=== PATIENT | male | born 1970 | race Caucasian/White ===

== ENCOUNTER 2021-01-03 12:46 | Inpatient (IN) ==
[2021-01-03] MEDS: 0.9 % Sodium Chloride 1,000 ML IVC SCH ×2 (15:27→22:32)
[2021-01-03] MEDS ORDERED: Naloxone 0.4 MG/ML INJ IVP PRN (15:50)
[2021-01-03] MEDS ORDERED: Albuterol 2.5 MG/3 ML NEBULIZER IH PRN (15:50)
[2021-01-03] MEDS ORDERED: Nicotine 21 MG PATCH.TD24 TD SCH (16:00)
[2021-01-03] MEDS ORDERED: Azithromycin 500 MG in 0.9 % Sodium Chloride 250 ML IVPB SCH (16:00)
[2021-01-03] MEDS ORDERED: cefTRIAXone 2,000 MG in Water for inj. (sterile) 20 ML IVP SCH (16:00)
[2021-01-03] MEDS: *HR* HYDROcodone/Acet 5/325 mg TABLET PO PRN ×2 (16:19→22:32)
[2021-01-03] MEDS: Ipratropium/Albuterol Neb 3 ML IH SCH ×3 (16:37→23:10)
[2021-01-03 16:45] LABS: White Blood Count 16.6 K/mcL (4.3-11.1)
[2021-01-03 16:46] LABS: Basophils % 0.2 %; Hematocrit 31.5 % (37.5-50.1); Hemoglobin 9.8 g/dL (12.9-16.9); Immature Granulocytes % 0.5 % (0-4); Lymphocytes # 0.7 K/mcL (0.6-4.6); Lymphocytes % 4.3 %; Mean Corpuscular HGB Conc 31.1 g/dL (31.6-35.5); Mean Corpuscular Hemoglobin 28.7 pg (28.0-33.3); Mean Corpuscular Volume 92.4 fL (83.0-100.0); Mean Platelet Volume 9.9 fL (9.4-12.4); Monocytes # 0.6 K/mcL (0.0-1.3); Monocytes % 3.7 %; Neutrophils # 15.1 K/mcL (1.6-8.9); Platelet Count 368 K/mcL (140-400); Red Blood Count 3.41 M/mcL (4.19-5.50); Red Cell Distribution Width 14.5 % (11.5-14.5); Segmented Neutrophils % 91.3 %
[2021-01-03 16:55] LABS: INR 1.2; Prothrombin Time 13.9 Seconds (9.4-12.1)
[2021-01-03 17:04] LABS: Albumin 3.3 g/dL (3.5-5.7); Albumin/Globulin Ratio 1.2 (1.1-2.2); Bilirubin,Indirect 0.2 mg/dL (0.0-1.0); Bilirubin,Total 0.2 mg/dL (0.3-1.0); Calcium 7.4 mg/dL (8.6-10.3); Globulin 2.8 g/dL (2.4-3.5); Phosphorous 2.6 mg/dL (2.7-4.5); Potassium 3.7 mEq/L (3.5-5.1); Total Protein 6.1 g/dL (6.4-8.9)
[2021-01-03] MEDS: *HR* Heparin 5,000 UNIT/ML VIAL SQ SCH (17:07)
[2021-01-03 17:33] LABS: Adenovirus Not Detected (Not Detect); Bordetella Pertussis Not Detected (Not Detect); Chlamydophila pneumoniae Not Detected (Not Detect); Coronavirus 229E Not Detected (Not Detect); Coronavirus HKU1 Not Detected (Not Detect); Coronavirus NL63 Not Detected (Not Detect); Coronavirus OC43 Not Detected (Not Detect); Human Metapneumovirus Not Detected (Not Detect); Human Rhinovirus/Enterovirus DETECTED (Not Detect); Influenza A Subtype 2009 H1 Not Detected (Not Detect); Influenza B Not Detected (Not Detect); Mycoplasma pneumoniae Not Detected (Not Detect); Parainfluenza Virus 1 Not Detected (Not Detect); Parainfluenza Virus 2 Not Detected (Not Detect); Parainfluenza Virus 3 Not Detected (Not Detect); Parainfluenza Virus 4 Not Detected (Not Detect); Respiratory Syncytial Virus Not Detected (Not Detect); SARS-CoV-2 Not Detected (Not Detect)
[2021-01-03 17:49] LABS: Amorphous Sediment,Urine Few per hpf (None-Few); Bilirubin,Urine Negative (Negative); Blood,Urine Trace (Negative); Clarity,Urine Turbid (Clear); Color,Urine Yellow (Yellow); Glucose,Urine (UA) Normal (Normal); Hyaline Casts,Urine Few per lpf (None Seen); Ketones,Urine Negative (Negative); Leukocyte Esterase,Urine Negative (Negative); Mucus,Urine Few per lpf (None-Few); Nitrite,Urine Negative (Negative); PH,Urine 5.5 pH Units (5.0-8.0); Protein,Urine 70 mg/dL (Neg-Trace); Specific Gravity,Urine 1.025 (1.010-1.025); Squamous Epithelial Cell,Urine Few per hpf (None-Few); Urobilinogen,Urine Normal (Normal); WBC,Urine 0-3 per hpf (0-3)
[2021-01-03] MEDS: Albumin Human 5% 12.5 GM/250 ML IV.SOLN IVC SCH ×2 (18:35→19:01)
[2021-01-03] MEDS: Acetaminophen 325 MG TABLET PO PRN (19:02)
[2021-01-04 00:34] LABS: Basophils % 0.1 %; Eosinophils % 0.1 %; Hematocrit 25.7 % (37.5-50.1); Immature Granulocytes % 0.6 % (0-4); Lymphocytes # 2.1 K/mcL (0.6-4.6); Lymphocytes % 16.7 %; Mean Corpuscular HGB Conc 31.1 g/dL (31.6-35.5); Mean Corpuscular Hemoglobin 29.2 pg (28.0-33.3); Mean Corpuscular Volume 93.8 fL (83.0-100.0); Mean Platelet Volume 9.6 fL (9.4-12.4); Monocytes % 8.3 %; Neutrophils # 9.3 K/mcL (1.6-8.9); Platelet Count 302 K/mcL (140-400); Red Blood Count 2.74 M/mcL (4.19-5.50); Red Cell Distribution Width 14.5 % (11.5-14.5); Segmented Neutrophils % 74.2 %; White Blood Count 12.5 K/mcL (4.3-11.1)
[2021-01-04 00:46] LABS: VBG Ionized Calcium 1.08 mmol/L (1.15-1.35)
[2021-01-04 00:58] LABS: Albumin 3.1 g/dL (3.5-5.7); Albumin/Globulin Ratio 1.3 (1.1-2.2); Bilirubin,Total 0.1 mg/dL (0.3-1.0); Globulin 2.4 g/dL (2.4-3.5); Magnesium 2.1 mg/dL (1.6-2.6); Phosphorous 3.7 mg/dL (2.7-4.5); Potassium 3.4 mEq/L (3.5-5.1); Total Protein 5.5 g/dL (6.4-8.9)
[2021-01-04] MEDS: Ipratropium/Albuterol Neb 3 ML IH SCH ×6 (03:41→23:45)
[2021-01-04] MEDS: *HR* HYDROcodone/Acet 5/325 mg TABLET PO PRN ×3 (04:32→17:03)
[2021-01-04] MEDS: *HR* Heparin 5,000 UNIT/ML VIAL SQ SCH ×2 (05:33→17:04)
[2021-01-04] MEDS: 0.9 % Sodium Chloride 1,000 ML IVC SCH (05:33)
[2021-01-04] MEDS: Calcium Gluconate 1gm/50mL 1 GM/50 ML BAG IVPB SCH ×2 (06:27→07:23)
[2021-01-04] MEDS: Acetaminophen 325 MG TABLET PO PRN ×3 (06:37→20:50)
[2021-01-04 13:10] LABS: Hematocrit 27.3 % (37.5-50.1); Hemoglobin 8.8 g/dL (12.9-16.9)
[2021-01-04 13:31] LABS: BUN/Creatinine Ratio 17 (6-26); Blood Urea Nitrogen 22 mg/dL (6-20); Calcium 8.2 mg/dL (8.6-10.3); Carbon Dioxide 22 mEq/L (23-29); Chloride 109 mEq/L (98-107); Glucose 128 mg/dL (70-105); Osmolality,Calculated 291 (280-300); Potassium 3.5 mEq/L (3.5-5.1); Sodium 138 mEq/L (136-145); eGFR For African Americans > 60 (> 60); eGFR For Non-African Americans 59 (> 60)
[2021-01-04] MEDS ORDERED: Naloxone 0.4 MG/ML INJ IVP PRN (14:32)
[2021-01-04] MEDS ORDERED: Albuterol 2.5 MG/3 ML NEBULIZER IH PRN (14:32)
[2021-01-04] MEDS ORDERED: Nicotine 21 MG PATCH.TD24 TD SCH (16:00)
[2021-01-04] MEDS ORDERED: cefTRIAXone 2,000 MG in Water for inj. (sterile) 20 ML IVP SCH (16:00)
[2021-01-04] MEDS ORDERED: Azithromycin 500 MG in 0.9 % Sodium Chloride 250 ML IVPB SCH (16:00)
[2021-01-04] MEDS: Gabapentin 300 MG CAPSULE PO SCH ×2 (17:03→20:36)
[2021-01-05 02:50] LABS: Basophils % 0.2 %; Eosinophils # 0.2 K/mcL (0.0-0.6); Eosinophils % 2.1 %; Hematocrit 29.5 % (37.5-50.1); Hemoglobin 9.1 g/dL (12.9-16.9); Immature Granulocytes % 0.5 % (0-4); Lymphocytes # 1.9 K/mcL (0.6-4.6); Lymphocytes % 23.3 %; Mean Corpuscular HGB Conc 30.8 g/dL (31.6-35.5); Mean Corpuscular Hemoglobin 28.6 pg (28.0-33.3); Mean Corpuscular Volume 92.8 fL (83.0-100.0); Mean Platelet Volume 9.8 fL (9.4-12.4); Monocytes # 0.9 K/mcL (0.0-1.3); Monocytes % 10.7 %; Neutrophils # 5.1 K/mcL (1.6-8.9); Platelet Count 388 K/mcL (140-400); Red Blood Count 3.18 M/mcL (4.19-5.50); Red Cell Distribution Width 14.5 % (11.5-14.5); Segmented Neutrophils % 63.2 %; White Blood Count 8.1 K/mcL (4.3-11.1)
[2021-01-05 03:09] LABS: Alanine Aminotransferase 13 Units/L (7-52); Albumin 3.4 g/dL (3.5-5.7); Albumin/Globulin Ratio 1.3 (1.1-2.2); Alkaline Phosphatase 46 Units/L (34-104); Aspartate Amino Transferase 14 Units/L (13-39); BUN/Creatinine Ratio 13 (6-26); Bilirubin,Total 0.2 mg/dL (0.3-1.0); Blood Urea Nitrogen 12 mg/dL (6-20); Calcium 8.4 mg/dL (8.6-10.3); Carbon Dioxide 25 mEq/L (23-29); Chloride 108 mEq/L (98-107); Globulin 2.7 g/dL (2.4-3.5); Glucose 91 mg/dL (70-105); Magnesium 1.8 mg/dL (1.6-2.6); Osmolality,Calculated 287 (280-300); Phosphorous 2.4 mg/dL (2.7-4.5); Potassium 3.7 mEq/L (3.5-5.1); Sodium 139 mEq/L (136-145); Total Protein 6.1 g/dL (6.4-8.9); eGFR For African Americans > 60 (> 60); eGFR For Non-African Americans > 60 (> 60)
[2021-01-05] MEDS: Ipratropium/Albuterol Neb 3 ML IH SCH ×3 (04:10→11:50)
[2021-01-05] MEDS: *HR* Heparin 5,000 UNIT/ML VIAL SQ SCH (05:33)
[2021-01-05] MEDS: *HR* HYDROcodone/Acet 5/325 mg TABLET PO PRN ×2 (05:39→12:18)
[2021-01-05] MEDS: Gabapentin 300 MG CAPSULE PO SCH (08:39)
[2021-01-05 10:10] VITALS: BP 130/80; PULSE 93; TEMP 98.3
[2021-01-05 11:53] VITALS: O2SAT 96
== END 2021-01-05 13:42 | disposition home or self-care (01) | DRG 720 ==
LOC: ICNU → 3ANU 01-04 15:54
PROVIDERS: ADMIT Pediatrics; ATTEND Pediatrics

== ENCOUNTER 2021-06-03 09:14 | Observation (INO) ==
[2021-06-03] MEDS ORDERED: *HR* OxyCODONE Immed Rel 5 MG TABLET PO ONE (10:00)
[2021-06-03] MEDS ORDERED: Famotidine 20 MG TABLET PO ONE (10:00)
[2021-06-03] MEDS ORDERED: Acetaminophen IV 1,000 MG/100 ML BAG IVPB ONE (10:09)
[2021-06-03] MEDS ORDERED: Famotidine 20 MG/2 ML VIAL IVP ONE (10:09)
[2021-06-03] MEDS ORDERED: *HR* Methadone 5 MG TABLET PO ONE (10:10)
[2021-06-03] MEDS ORDERED: *HR* FentaNYL (PF) 100 MCG/2 ML VIAL ONE (10:15)
[2021-06-03] MEDS ORDERED: *HR* Midazolam HCl 2 MG/2 ML VIAL ONE (10:15)
[2021-06-03] MEDS ORDERED: *HR* Remifentanil 1 MG VIAL IVP ONE (10:15)
[2021-06-03] MEDS ORDERED: *HR* Succinylcholine 200 MG/10 ML VIAL IVP ONE (10:15)
[2021-06-03] MEDS ORDERED: *HR* Propofol 200 MG/20 ML VIAL IVP ONE ×2 (10:15→14:38)
[2021-06-03] MEDS ORDERED: Lidocaine -MPF 2% 5 ML VIAL ONE (10:15)
[2021-06-03] MEDS ORDERED: *HR* Phenylephrine 10 MG/ML VIAL ONE (10:15)
[2021-06-03] MEDS ORDERED: CeFAZolin Syr 2,000MG/20 ML 2,000 MG/20 ML SYRINGE IVPB ONE (10:20)
[2021-06-03] MEDS ORDERED: Ringers Solution, Lactated 1,000 ML IVC SCH (10:30)
[2021-06-03] MEDS ORDERED: Vancomycin 1,000 MG VIAL ONE (10:59)
[2021-06-03] MEDS ORDERED: Polymyxin B Sulfate 500,000 UNIT, Sodium Chloride IRRigation 1,000 ML IR ONE (11:00)
[2021-06-03] MEDS ORDERED: Lidocaine -MPF 4% 5 ML AMPUL ONE (11:26)
[2021-06-03] MEDS ORDERED: Ondansetron 4 MG/2 ML VIAL ONE (14:27)
[2021-06-03] MEDS ORDERED: Neostigmine Methylsulfate 3 MG/3 ML SYRINGE ONE (14:29)
[2021-06-03] MEDS ORDERED: Ketorolac 30 MG/ML VIAL IVP ONE (14:59)
[2021-06-03] MEDS: *HR* HYDROmorphone PF 0.5 MG/0.5 ML SYRINGE IVP PRN ×4 (15:20→15:45)
[2021-06-03] MEDS ORDERED: Ondansetron 4 MG/2 ML VIAL IVP PRN (17:52)
[2021-06-03] MEDS ORDERED: Naloxone 0.4 MG/ML INJ IVP PRN (17:52)
[2021-06-03] MEDS: Ringers Solution, Lactated 1,000 ML IVC SCH (18:33)
[2021-06-03] MEDS: CeFAZolin 2 GM/120 ML BAG IVPB SCH (18:34)
[2021-06-03] MEDS: *HR* OxyCODONE Immed Rel 5 MG TABLET PO PRN ×2 (18:44→22:57)
[2021-06-03] MEDS: *HR* HYDROcodone/Acet 5/325 mg TABLET PO PRN (19:40)
[2021-06-04] MEDS: CeFAZolin 2 GM/120 ML BAG IVPB SCH (02:49)
[2021-06-04] MEDS: *HR* OxyCODONE Immed Rel 5 MG TABLET PO PRN ×5 (02:55→23:30)
[2021-06-04] MEDS: Ringers Solution, Lactated 1,000 ML IVC SCH ×2 (06:08→15:12)
[2021-06-04] MEDS: Gabapentin 300 MG CAPSULE PO SCH ×3 (07:53→21:00)
[2021-06-04] MEDS: lisinopriL 20 MG TABLET PO SCH (07:53)
[2021-06-04] MEDS: *HR* HYDROcodone/Acet 5/325 mg TABLET PO PRN ×2 (09:53→16:31)
[2021-06-04] MEDS: Acetaminophen 325 MG TABLET PO PRN (10:55)
[2021-06-04] MEDS: diazePAM 5 MG TABLET PO PRN (21:00)
[2021-06-04] MEDS: Temazepam 15 MG CAPSULE PO PRN (21:46)
[2021-06-05] MEDS: Acetaminophen 325 MG TABLET PO PRN ×2 (00:23→17:43)
[2021-06-05] MEDS: *HR* OxyCODONE Immed Rel 5 MG TABLET PO PRN ×5 (03:27→21:10)
[2021-06-05] MEDS: Ringers Solution, Lactated 1,000 ML IVC SCH ×2 (07:24→10:34)
[2021-06-05] MEDS: lisinopriL 20 MG TABLET PO SCH (09:11)
[2021-06-05] MEDS: Gabapentin 300 MG CAPSULE PO SCH ×3 (09:11→20:17)
[2021-06-05] MEDS: *HR* HYDROcodone/Acet 5/325 mg TABLET PO PRN ×2 (10:35→23:30)
[2021-06-05] MEDS: diazePAM 5 MG TABLET PO PRN ×2 (11:41→20:17)
[2021-06-05] MEDS: Temazepam 15 MG CAPSULE PO PRN (20:17)
[2021-06-06] MEDS: *HR* OxyCODONE Immed Rel 5 MG TABLET PO PRN ×3 (01:13→09:52)
[2021-06-06] MEDS: Acetaminophen 325 MG TABLET PO PRN ×2 (01:15→07:40)
[2021-06-06 06:42] VITALS: BP 111/76; PULSE 75; TEMP 98.2; O2SAT 95
[2021-06-06] MEDS: *HR* HYDROcodone/Acet 5/325 mg TABLET PO PRN (06:46)
[2021-06-06] MEDS: lisinopriL 20 MG TABLET PO SCH (07:32)
[2021-06-06] MEDS: Gabapentin 300 MG CAPSULE PO SCH (07:32)
[2021-06-06] MEDS: diazePAM 5 MG TABLET PO PRN (09:52)
== END 2021-06-06 11:15 | disposition home or self-care (01) ==
LOC: 4WAOSI 09:14 → SDCAOSI 09:14 → 4WAOSI 16:25
PROVIDERS: ADMIT Orthopaedic Surgery Orthopaedic Surgery of the Spine; ATTEND Orthopaedic Surgery Orthopaedic Surgery of the Spine